=== PATIENT | male | born 1975 | race Caucasian/White ===

== ENCOUNTER 2022-02-20 12:57 | Outpatient (CLI) | payer OTHER | END 2022-02-20 12:58 | disposition home or self-care (01) | LOC: CSHCT 12:57 | PROVIDERS: ATTEND Student in an Organized Health Care Education/Training Program | DX: E78.5 Hyperlipidemia, unspecified (principal) | CPT/HCPCS: 75571 ==

== ENCOUNTER 2023-01-01 06:41 | Day surgery (SDC) | payer BC ==
[2022-12-30 11:32] VITALS: BMI 26.2
[2023-01-01] MEDS ORDERED: PROPOFOL 40 ML ONE (08:28)
[2023-01-01] MEDS ORDERED: PROPOFOL 20 ML ONE ×2 (08:54→09:08)
[2023-01-01] MEDS ORDERED: Phenylephrine 10 MG/ML VIAL ONE (09:12)
== END 2023-01-01 10:15 | disposition home or self-care (01) ==
LOC: CSHSDC 06:41
PROVIDERS: ATTEND Surgery
PROC: 0DBH8ZZ Excision of Cecum, Via Natural or Artificial Opening Endoscopic (ICD-10-PCS; principal; 2023-01-01)
DX: Z12.11 Encounter for screening for malignant neoplasm of colon (principal); D12.0 Benign neoplasm of cecum; Q43.8 Other specified congenital malformations of intestine; N18.2 Chronic kidney disease, stage 2 (mild); Z79.899 Other long term (current) drug therapy
CPT/HCPCS: 88305; J2370; J2704